=== PATIENT | male | born 1980 | race African-American/Black ===

== ENCOUNTER 2022-02-07 09:59 | Emergency (ER) | payer OTHER ==
[2022-02-07 10:54] LABS: #Basophils 0.1 10x3/uL (0.0-0.2); #Eosinphils 0.4 10x3/uL (0.0-0.5); #Monocytes 0.8 10x3/uL (0.0-1.1); #Neutrophils 5.3 10x3/uL (1.5-8.4); %Basophils 1.2 % (0.0-2.0); %Eosinophils 3.8 % (0.0-6.0); %Lymphocytes 28.2 % (18.0-47.0); %Monocytes 8.6 % (0.0-10.0); %Neutrophils 57.1 % (40.0-75.0); Hemoglobin 15.4 g/dL (13.5-17.5); Mean Corpuscular HGB CONC 33.6 g/dL (32.0-36.0); Mean Corpuscular Hemoglobin 30.6 pg (27.0-33.0); Mean Corpuscular Volume 91.1 fl (81.2-95.1); Mean Platelet Volume 8.9 fl (7.4-10.4); Platelet Count 380 10x3/uL (150-450); RBC Distribution Width 13.2 % (11.5-14.5); Red Blood Cell (RBC) Count 5.04 10x6/uL (4.32-5.72); White Blood Cell (WBC) Count 9.3 10x3/uL (3.5-10.5)
[2022-02-07 11:01] LABS: ALT (SGPT) 37 U/L (8-55); AST (SGOT) 28 U/L (5-34); Albumin 4.4 g/dL (3.5-5.0); Alkaline Phosphatase 49 U/L (40-110); Anion Gap 12 mmol/L (10-20); BUN (Urea Nitrogen) 13 mg/dL (8.9-20.6); Bilirubin, Total 0.6 mg/dL (0.2-1.2); Calc. Creatinine Clearance 0 mL/min (70-130); Calcium 9.7 mg/dL (7.8-10.44); Carbon Dioxide 27 mmol/L (22-29); Chloride 104 mmol/L (98-107); Estimated GFR 88; Globulin 3.8 g/dL (2.4-3.5); Glucose 103 mg/dL (70-105); Potassium 4.1 mmol/L (3.5-5.1); Protein, Total 8.2 g/dL (6.0-8.3); Sodium 139 mmol/L (136-145)
== END 2022-02-07 11:44 | disposition home or self-care (01) ==
LOC: CSHERS 09:59 → EEVIPCON 09:59 → CSHERS 11:44
DX: U09.9 Post COVID-19 condition, unspecified (principal)
CPT/HCPCS: 71045; 80053; 84484; 85025; 93005; 94760